=== PATIENT | male | born 1955 | race Caucasian/White ===

== ENCOUNTER 2024-09-03 06:49 | Emergency (ER) | payer OTHER ==
[2024-09-03] MEDS ORDERED: methocarbamoL 500 MG TAB ONE (07:32)
[2024-09-03] MEDS ORDERED: LIDOCAINE 4% PATCH ONE (07:32)
[2024-09-03] MEDS ORDERED: MORPHINE 4 MG/ML SYR ONE (07:32)
--- NOTE | 2024-09-03 08:39 | RAD REPORT ---
EXAMINATION: ONE VIEW CHEST XR CLINICAL INDICATION: Male, 69 years old.,GLF TECHNIQUE: Frontal chest projection is submitted. Examination is limited by patient positioning and t echnique. COMPARISON: No prior exam. FINDINGS: The lungs are well inflated and clear. No pneumothorax or sizable effusion. The heart is normal in s ize. IMPRESSION: No acute intrathoracic abnormalities.
--- NOTE | 2024-09-03 08:39 | RAD REPORT ---
EXAMINATION: CT LUMBAR SPINE WITHOUT CONTRAST CLINICAL INDICATION: Male, 69 years old. GLF TECHNIQUE: Axial CT images were obtained through the lumbar spine in soft tissue and bone windows wit hout intravenous contrast. Coronal and Sagittal reformatted images were created from the data set. One or more of the following dose reduction techniques were used: Automated exposure control, adjustm ent of the mA and/ or kV according to patient size, and/or iterative reconstruction. Unless otherwise specified, incidental findings do not require dedicated imaging follow-up. COMPARISON: MRI lumbar spine 10/31/2022 FINDINGS: For purposes of this dictation, it is assumed that there are 5 non rib-bearing lumbar type vertebrae, and the most caudal fully segmented lumbar vertebra is labeled L5. ALIGNMENT: Grade 1 anterolisthesis of L4 over L5 measuring approximately 4-5 mm, due to advanced face t, and mild to moderate endplate degenerative changes. Similar changes present at multiple other levels contributing to the findings below. No subluxation. BONES: No significant soft tissue abnormalities. No aggressive osseous lesions. Sequelae of posterior decompression via bilateral laminectomies at L3-S1. DISCS: Multilevel disc height loss as below, with disc vacuum phenomenon at multiple levels. LEVELS: At L1-2: No significant canal stenosis or neuroforaminal narrowing. Mild broad-based disc bulge. At L2-3: Mild broad-based disc bulge. Mild to moderate bilateral neural foraminal narrowing. At L3-4: Facet arthropathy and ligamentum flavum buckling contribute to at least moderate central can al stenosis. Broad-based disc bulge with endplate remodeling also present. Left moderate in the right moderate to severe neural foraminal narrowing. At L4-5: Disc extrusion along the central to left subarticular zone. Overall mild to moderate central canal stenosis. Right moderate and left moderate to severe neural foraminal narrowing. At L5-S1: Moderate to advanced disc height loss. Broad based disc bulge with endplate remodeling. No residual central canal stenosis. Bilateral moderate to severe neural foraminal narrowing. SOFT TISSUE: Trabecular appearance of the urinary bladder wall with multiple diverticula. Left mild h ydroureteronephrosis with no evidence of radiopaque calculi IMPRESSION: Multilevel lumbar spine degenerative changes as above, contributing to at least moderate central bobo l stenosis at L3-4 and variable degrees of neural foraminal narrowing, up to severe, as detailed above. No acute fracture or subluxation. Multiple urinary bladder diverticula with trabecular appearance of the wall and mild left hydroureter onephrosis. Findings may relate to reflux in the setting of long-standing bladder outlet obstruction.
--- NOTE | 2024-09-03 08:40 | RAD REPORT ---
EXAMINATION: Ribs Left INDICATION: GLF COMPARISON: Chest radiograph of the same day TECHNIQUE: 2 views of the left rib cage. FINDINGS: Included portions of the chest reveal clear lungs. There is no effusion or pneumothorax. Mediastinal contours are within normal limits. No displaced rib fracture is identified. No suspicious focal osseous lesion.. IMPRESSION: No acute fractures are identified radiographically..
--- NOTE | 2024-09-03 08:42 | RAD REPORT ---
EXAMINATION: Thorax Wo Con CLINICAL INDICATION: Male, 69 years old. [facility] F Bed Name: 15 Y TECHNIQUE: Axial CT scan of the chest without intravenous contrast. Multiplanar reformats were genera yesy and reviewed. One or more of the following dose reduction techniques were used: Automated exposure control, adjustment of the mA and/or kV according patient size, and/or iterative reconstruct ion. Unless otherwise specified, incidental findings do not require dedicated imaging follow-up. COMPARISON: Chest radiograph of earlier the same day. FINDINGS: LOWER NECK: Visualized thyroid gland and soft tissues are normal. LUNGS: The lungs are clear. No evidence of airspace or interstitial process. 4-5 mm left lower lobe p leural-based nodule on axial image 37/58, benign appearance. No other worrisome nodules. PLEURA: No pleural effusion. No pneumothorax. . MEDIASTINUM AND LYMPH NODES: Mild ectasia of the ascending thoracic aorta measuring 4.1 cm in caliber . No mediastinal mass or fluid collection. Normal size mediastinal, hilar, and axillary lymph nodes. OSSEOUS STRUCTURES AND CHEST WALL: Intact. UPPER ABDOMEN: No significant abnormalities. IMPRESSION: No acute intrathoracic abnormalities. Examination is limited by lack of contrast. Incidentally noted mild ectasia of the ascending thoracic aorta, measuring 4.1 cm in caliber.
--- NOTE | 2024-09-03 08:45 | EDPHYS ---
Physician Documentation [facility] Name: Siva Roe Age: 69 yrs Sex: Male : 1955 Arrival Date: 09/03/2024 Time: 06:49 Bed 13 Private MD: ED Physician Jose Donnelly HPI: 09/03 07:18 This 69 yrs old Male presents to ER via Unassigned with complaints of FELL IN ec2 BATHTUB. 07:18 Patient arrives today for evaluation after a ground-level fall which occurred ec2 yesterday. States that he has issues with ambulation and had a fall. No LOC, not on blood thinners. Complaining of mid to low back pain.. Historical: - Allergies: 07:19 No Known Allergies; aa5 - PMHx: 07:19 Hypertensive disorder; aa5 07:19 Spinal Stenosis; Chronic Back pain; aa5 - PSHx: 07:19 Back sx; Cervical spine sx; hernia repair; Appendectomy; cyst removed from R foot; aa5 - Immunization history:: Adult Immunizations unknown. - Infectious Disease History:: Denies. - Social history:: Smoking status: Patient denies any tobacco usage or history of. ROS: 07:18 Constitutional: as per hpi ec2 Exam: 07:18 Constitutional: GEN: No acute distress HEENT: -Head: no deformities -Eyes: EOMI CV: ec2 regular rate LUNGS: no respiratory distress ABD: non-tender SKIN: no wounds appreciated MSK: No C/T/L spine deformities, TTP to the T and L-spine. Tenderness to the left lateral ribs. RUE w/o bony deformity LUE w/o bony deformity RLE w/o bony deformity LLE w/o bony deformity NEURO: moves all extremities equally, GCS 15 (E4, V5, M6) Vital Signs: 07:00 BP 114 / 71; Pulse 81; Resp 14 S; Temp 98.3(O); Pulse Ox 97% on R/A; Weight 65.77 kg aa5 (R); Height 5 ft. 2 in. (R); 07:55 BP 126 / 91; Pulse 75; Resp 16 S; Pulse Ox 96% on R/A; aa5 09:10 BP 125 / 88; Pulse 72; Resp 14 S; Pulse Ox 95% on R/A; aa5 07:00 Body Mass Index 26.52 (65.77 kg, 157.48 cm) aa5 MDM: 07:03 Patient medically screened. ec2 07:18 Data reviewed: vital signs. ED course: Patient arrives today for evaluation of back ec2 pain after abdominal fall. Examination remarkable for MSK findings as above. Will obtain CT imaging as well as radiographs. Differential includes contusion, fracture.. 08:44 ED course: CT of the lumbar spine shows chronic changes, patient with known history of ec2 spinal stenosis, no new neurodeficit per patient. Thorax without any acute abnormalities, chest x-ray, rib series without any acute injury. Will discharge home. Return precautions given . 09/03 07:18 Order name: CT Lumbar Spine Wo Con; Complete Time: 08:43 ec2 09/03 07:18 Order name: Thorax Wo Con CT; Complete Time: 08:43 ec2 09/03 07:18 Order name: CXR XRAY; Complete Time: 08:43 ec2 09/03 07:18 Order name: Ribs Left XRAY; Complete Time: 08:43 ec2 Administered Medications: 07:55 Drug: Lidoderm Topical Patch 5 % (700 mg/patch) 1 patches Topical once; leave on for 12 aa5 hours; cover most painful area; may cut into smaller pieces {Note: to left side of back.} Route: Topical; Site: affected area; 07:55 Drug: Methocarbamol PO 500 mg PO once Route: PO; aa5 08:49 Follow up: Response: No adverse reaction; Pain is decreased aa5 07:55 Drug: morphine IM 4 mg IM once Route: IM; Site: right deltoid; aa5 08:48 Follow up: Response: No adverse reaction; Pain is decreased aa5 09:04 Drug: Ketorolac IM 30 mg IM once Route: IM; Site: left deltoid; aa5 09:15 Follow up: Response: No adverse reaction aa5 Disposition Summary: 09/03/24 08:44 Discharge Ordered Notes: Location: Home ec2 Condition: Stable ec2 Diagnosis - Low back pain ec2 - Mid Back Pain ec2 Followup: ec2 - With: Private Physician - When: - Reason: Re-evaluation by your physician Discharge Instructions: - Discharge Summary Sheet ec2 - Acute Back Pain, Adult ec2 Forms: - Medication Reconciliation Form ec2 - Antibiotic Education ec2 - Prescription Opioid Use ec2 - Patient Portal Instructions ec2 - Leadership Thank You Letter ec2 Prescriptions: - methocarbamol 500 mg Oral tablet - take 1 tablet ORAL route 4 times per day; 30 tablet; Refills: 0, Product ec2 Selection Permitted Signatures: Dispatcher [employer] Silvana Cheng RN RN aa5 Jose Donnelly MD MD ec2 Corrections: (The following items were deleted from the chart) 07:18 07:18 Thorax Wo Con+CT.RAD.BRZ ordered. EDMS EDMS 07:18 07:18 Chest Single View+RAD.RAD.BRZ ordered. EDMS EDMS
--- NOTE | 2024-09-03 08:45 | ER ---
Nurse's Notes [facility] Name: Siva Roe Age: 69 yrs Sex: Male : 1955 Arrival Date: 09/03/2024 Time: 06:49 Bed 13 Private MD: Diagnosis: Low back pain;Mid Back Pain Presentation: 09/03 07:00 Chief complaint: Patient states: "my legs gave out yesterday morning and I fell onto my aa5 left side". pt c/o pain to left shoulder and left side of back. Denies head injury, denies LOC. 07:00 Acuity: FATOUMATA 4 aa5 07:00 Method Of Arrival: Ambulatory aa5 07:00 Coronavirus screen: At this time, the client does not indicate any symptoms associated aa5 with coronavirus-19. Ebola Screen: Patient denies travel to an Ebola-affected area in the 21 days before illness onset. Initial Sepsis Screen: Does the patient meet any 2 criteria? No. Patient's initial sepsis screen is negative. Does the patient have a suspected source of infection? No. Patient's initial sepsis screen is negative. Risk Assessment: Do you want to hurt yourself or someone else? Patient reports no desire to harm self or others. 07:00 Onset of symptoms was September 02, 2024. aa5 Historical: - Allergies: 07:19 No Known Allergies; aa5 - PMHx: 07:19 Hypertensive disorder; aa5 07:19 Spinal Stenosis; Chronic Back pain; aa5 - PSHx: 07:19 Back sx; Cervical spine sx; hernia repair; Appendectomy; cyst removed from R foot; aa5 - Immunization history:: Adult Immunizations unknown. - Infectious Disease History:: Denies. - Social history:: Smoking status: Patient denies any tobacco usage or history of. Screenin:10 [facility] ED Fall Risk Assessment (Adult) History of falling in the last 3 months, aa5 including since admission Yes- fall prone (multiple falls) (3 pts) Confusion or Disorientation No (0 pts) Intoxicated or Sedated No (0 pts) Impaired Gait No (0 pts) Mobility Assist Device Used No (0 pt) Altered Elimination No (0 pt) Score/Fall Risk Level 3 or more points = High Risk Oriented to surroundings, Maintained a safe environment, Educated pt \\T\\ family on fall prevention, incl call for assistance when getting out of bed, Hourly rounding (assess needs \\T\\ fall precautionary measures) done. Abuse screen: Denies threats or abuse. Nutritional screening: No deficits noted. Tuberculosis screening: No symptoms or risk factors identified. Assessment: 07:00 General: Appears uncomfortable, Behavior is calm, cooperative. Pain: Complains of pain aa5 in left shoulder and left mid back Pain currently is 10 out of 10 on a pain scale. Quality of pain is described as sharp, shooting, Is continuous. 07:00 Neuro: Level of Consciousness is awake, alert, obeys commands, Oriented to person, aa5 place, time, situation. Cardiovascular: Patient's skin is warm and dry. Respiratory: Airway is patent Respiratory effort is even, unlabored, Respiratory pattern is regular, symmetrical. GI: No signs and/or symptoms were reported involving the gastrointestinal system. : No signs and/or symptoms were reported regarding the genitourinary system. EENT: No signs and/or symptoms were reported regarding the EENT system. Derm: Skin is pink, warm \\T\\ dry. Musculoskeletal: Range of motion: intact in all extremities, Reports pain in back and left shoulder. 07:55 Reassessment: Patient is alert, oriented x 3, equal unlabored respirations, skin aa5 warm/dry/pink. 08:45 Reassessment: Patient is alert, oriented x 3, equal unlabored respirations, skin aa5 warm/dry/pink. Pt reports slight improvement of pain, pt states "when I move it still hurts bad" . Pain: Pain currently is 7 out of 10 on a pain scale. 09:15 Reassessment: Patient is alert, oriented x 3, equal unlabored respirations, skin aa5 warm/dry/pink. Patient states feeling better. Patient states symptoms have improved. Vital Signs: 07:00 BP 114 / 71; Pulse 81; Resp 14 S; Temp 98.3(O); Pulse Ox 97% on R/A; Weight 65.77 kg aa5 (R); Height 5 ft. 2 in. (R); 07:55 BP 126 / 91; Pulse 75; Resp 16 S; Pulse Ox 96% on R/A; aa5 09:10 BP 125 / 88; Pulse 72; Resp 14 S; Pulse Ox 95% on R/A; aa5 07:00 Body Mass Index 26.52 (65.77 kg, 157.48 cm) aa5 ED Course: 06:53 Patient arrived in ED. gm2 07:00 Arm band placed on Patient placed in an exam room, on a stretcher. aa5 07:00 Patient has correct armband on for positive identification. Placed in gown. Bed in low aa5 position. Call light in reach. Side rails up X2. Adult w/ patient. Pulse ox on. NIBP on. 07:03 Jose Donnelly MD is Attending Physician. ec2 07:17 Silvana Valdovinos, LYUBOV is Primary Nurse. aa5 07:23 Triage completed. aa5 07:40 CT Lumbar Spine Wo Con In Process Unspecified. EDMS 07:[address] In Process Unspecified. EDMS 07:48 CXR XRAY In Process Unspecified. EDMS 07:48 Ribs Left XRAY In Process Unspecified. EDMS 08:27 No provider procedures requiring assistance completed. aa5 09:15 Patient did not have IV access during this emergency room visit. aa5 Administered Medications: 07:55 Drug: Lidoderm Topical Patch 5 % (700 mg/patch) 1 patches Topical once; leave on for 12 aa5 hours; cover most painful area; may cut into smaller pieces {Note: to left side of back.} Route: Topical; Site: affected area; 07:55 Drug: Methocarbamol PO 500 mg PO once Route: PO; aa5 08:49 Follow up: Response: No adverse reaction; Pain is decreased aa5 07:55 Drug: morphine IM 4 mg IM once Route: IM; Site: right deltoid; aa5 08:48 Follow up: Response: No adverse reaction; Pain is decreased aa5 09:04 Drug: Ketorolac IM 30 mg IM once Route: IM; Site: left deltoid; aa5 09:15 Follow up: Response: No adverse reaction aa5 Medication: 07:10 VIS not applicable for this client. aa5 Outcome: 08:44 Discharge ordered by . ec2 09:15 Discharged to home ambulatory, with significant other, aa5 09:15 Condition: improved 09:15 Discharge instructions given to patient, Instructed on discharge instructions, follow up and referral plans. medication usage, Demonstrated understanding of instructions, follow-up care, medications, Prescriptions given X 1, 09:22 Patient left the ED. aa5 Signatures: Dispatcher [employer] Silvana Chneg RN RN aa5 Jose Donnelly MD MD ec2 Shi Starr 2 Corrections: (The following items were deleted from the chart) 08:50 07:00 Pain: Complains of pain in left shoulder and left mid back Quality of pain is aa5 described as sharp, shooting, Is continuous, aa5
[2024-09-03] MEDS ORDERED: KETOROLAC 30 MG/ML INJ ONE (08:59)
[2024-09-03 13:41] VITALS: TEMP 98.3
[2024-09-03 13:42] VITALS: BP 126/91; O2SAT 96
== END 2024-09-03 09:22 | disposition home or self-care (01) ==
LOC: ER 06:49
DX: M54.50 Low back pain, unspecified (principal); M54.9 Dorsalgia, unspecified; W18.30XA Fall on same level, unspecified, initial encounter
CPT/HCPCS: 72131; 71250; 71045; 71100; 96372; 99284; J2001